=== PATIENT | male | born 1995 | race Caucasian/White ===

== ENCOUNTER 2018-10-21 11:52 | Day surgery (SDC) | payer OTHER ==
[2018-10-21] MEDS ORDERED: PROPOFOL 40 ML (14:59)
[2018-10-21] MEDS ORDERED: LIDOCAINE 2% (SDV) 5 ML INJ (15:00)
[2018-10-21] MEDS ORDERED: ONDANSETRON 4 MG INJ IV (15:30)
[2018-10-21] MEDS ORDERED: FENTAnyl 50 MCG/ML VIAL IV ×2 (15:30)
== END 2018-10-21 15:55 | disposition home or self-care (01) ==
LOC: GIL 11:52
DX: K20.9 Esophagitis, unspecified (principal); F17.200 Nicotine dependence, unspecified, uncomplicated
CPT/HCPCS: 43239; 88305